=== PATIENT | female | born 1995 | race Two or more races ===

== ENCOUNTER 2020-03-02 17:30 | Emergency (ER) | payer SELFPAY ==
[~2020-03-02] VITALS: Ht 154.9 cm; Wt 77.1 kg
--- NOTE | 2020-03-02 17:49 | NUR ---
DR MARTINEZ AT BEDSIDE TO EVALUATE PT.
--- NOTE | 2020-03-02 19:12 | NUR ---
MSE COMPLETED, PT HAD DOUG DONE, PT D/C'D HOME, COPY OU DOUG DONE, PT AMBULATED W/O DIFF/TOOK ALL BELONGINGS.
[2020-03-02 19:13] VITALS: BP 120/92
== END 2020-03-02 19:14 | disposition home or self-care (01) ==
LOC: ER 17:30
DX: O9A.211 Injury, poisoning and certain other consequences of external causes complicating pregnancy, first trimester (principal); R10.30 Lower abdominal pain, unspecified; Z3A.12 12 weeks gestation of pregnancy; V43.52XA Car driver injured in collision with other type car in traffic accident, initial encounter; Y93.9 Activity, unspecified
CPT/HCPCS: 76856; A4663